=== PATIENT | male | born 1965 | race Caucasian/White ===

== ENCOUNTER 2016-11-18 05:17 | Inpatient (IN) | payer OTHER ==
[2016-11-17 11:19] VITALS: BMI 33.5
[~2016-11-18] VITALS: Ht 185.4 cm; Wt 121.2 kg
[2016-11-18] VITALS (16 sets, daily range): BP systolic 119–165; BP diastolic 71–102; PULSE 50–88; RESP 12–20; Ht 185.4 cm; Wt 121.2 kg
[2016-11-18] MEDS ORDERED: LACTATED RINGER'S 1L BAG IV* SCH (06:00)
[2016-11-18] MEDS ORDERED: CEFAZOLIN 2 GM/50 ML (PMX) 50 ML IVPB SCH (06:00)
[2016-11-18 06:04] LABS: INR 0.96; PROTIME 12.8 Sec (12.2-14.2)
[2016-11-18 06:06] LABS: PARTIAL THROMBOPLASTIN TIME 29.6 Sec (25.0-35.0)
[2016-11-18] MEDS ORDERED: SURGIFOAM POWDER 1 GM KIT ONE (06:47)
[2016-11-18] MEDS ORDERED: BUPIVACAINE 0.25%/EPI (SDV) 30 ML INJ ONE (06:48)
[2016-11-18] MEDS ORDERED: CEFAZOLIN 1 GM INJ ONE (06:48)
[2016-11-18] MEDS ORDERED: HEPARIN 1000 UNITS/ML 10 ML INJ ONE (06:48)
[2016-11-18] MEDS ORDERED: THROMBIN 5000 UNIT VIAL ONE (06:48)
[2016-11-18] MEDS ORDERED: PROPOFOL 100 ML ONE (07:00)
[2016-11-18] MEDS ORDERED: ROCURONIUM 50 MG INJ ONE (07:00)
[2016-11-18] MEDS ORDERED: LIDOCAINE 2% (SDV) 5 ML INJ ONE (07:01)
[2016-11-18] MEDS ORDERED: SUCCINYLCHOLINE CHLORIDE 100 MG/5 ML SYG IV ONE (07:01)
--- NOTE | 2016-11-18 07:02 | HPN ---
Date/Time of Note Date/Time of Note DATE: 11/18/16 TIME: 07:02 Interval H&P Admission Note Pt. seen H&P reviewed: No system changes IVELISSE OSPINA MD Nov 18, 2016 07:02
[2016-11-18] MEDS ORDERED: MIDAZOLAM 1 MG/ML 2 ML INJ ONE (07:14)
[2016-11-18] MEDS ORDERED: HYDROmorphONE 1 MG/ML SYG IV PRN (07:30)
[2016-11-18] MEDS ORDERED: NALOXONE (0.4 MG/ML) INJ IV PRN (07:30)
[2016-11-18] MEDS ORDERED: HYDROCODONE/APAP (10/325) TAB PO PRN (07:30)
[2016-11-18] MEDS ORDERED: ACETAMINOPHEN 325 MG TAB PO PRN (07:30)
[2016-11-18] MEDS ORDERED: ZOLPIDEM 5 MG TAB PO PRN (07:30)
[2016-11-18] MEDS ORDERED: EPHEDrine SULFATE 50 MG/5 ML SYG IV PRN (07:30)
[2016-11-18] MEDS ORDERED: ONDANSETRON 4 MG INJ IV PRN ×2 (07:30)
[2016-11-18] MEDS ORDERED: hydrALAzine 20 MG INJ IV PRN (07:30)
[2016-11-18] MEDS ORDERED: BISACODYL 10 MG SUPP PR PRN (07:30)
[2016-11-18] MEDS ORDERED: DIPHENHYDRAMINE 25 MG CAP PO PRN (07:30)
[2016-11-18] MEDS ORDERED: HYDROmorphONE (0.2 MG/ML) 10ML SYG IV PRN ×2 (07:30)
[2016-11-18] MEDS ORDERED: FENTAnyl 50 MCG/ML VIAL IV PRN ×2 (07:30)
[2016-11-18] MEDS ORDERED: MEPERIDINE 25 MG INJ IV PRN (07:30)
[2016-11-18] MEDS ORDERED: LABETALOL HCL 20MG INJ IV PRN (07:30)
[2016-11-18] MEDS ORDERED: AL HYDROX/MG HYDROX/SIMETH 30 ML CUP PO PRN (07:30)
[2016-11-18] MEDS ORDERED: DIPHENHYDRAMINE 50 MG INJ IV PRN (07:30)
[2016-11-18] MEDS ORDERED: HYDROmorphONE 2 MG/ML SYG ONE (08:15)
[2016-11-18] MEDS ORDERED: LABETALOL HCL 20MG INJ ONE (08:31)
[2016-11-18] MEDS: DOCUSATE SODIUM 100 MG CAP PO SCH ×2 (09:00→20:19)
[2016-11-18] MEDS ORDERED: GELATIN SIZE 100 SPONGE TOP ONE (09:15)
--- NOTE | 2016-11-18 10:22 | OPR ---
DATE OF OPERATION: PREOPERATIVE DIAGNOSES: 1. L5-S1 isthmic spondylolisthesis and stenosis. 2. Lumbar radiculopathy. POSTOPERATIVE DIAGNOSES: 1. L5-S1 isthmic spondylolisthesis and stenosis. 2. Lumbar radiculopathy. PROCEDURE PERFORMED: 1. Anterior lumbar interbody fusion at L5 to S1. 2. Placement of intervertebral biomechanical device with integral screws at L5 to S1. 3. Fibergraft allograft. 4. Use of C-arm fluoroscopy with interpretation without radiologist present. 5. Application of NuShield device. 6. Intraoperative neuromonitoring (1.5 hours). IMPLANTS: 1. Synthes Synfix Evolution large 13.5 mm height with 18-degree lordosis 40, mm width, 31 mm depth with 25 mm screws. 2. Fibergraft. PRIMARY SURGEON: Larry Mcnally MD COSURGEON: Wilmer Reed MD SECOND [place] STILL OPERATOR: Ileana Liu PA-C NEED FOR COSURGEON: A cosurgeon was required in order to perform vascular access. This is the standard of care. FINDINGS: Neuromonitoring at the start of the case revealed left L5, left S1 and right S1 amplitudes all down to 40%. At the end of the case, nerve signals returned to normal. The patient had an anterolisthesis with significant disk collapse. ESTIMATED BLOOD LOSS: Per Dr. Reed. SPECIMENS: L5 to S1 disk was sent to Pathology. COMPLICATIONS OF PROCEDURES: None. ANESTHESIOLOGIST: Dr. Monte. TYPE OF ANESTHESIA: General. INDICATIONS FOR PROCEDURE: This is a 50-year-old gentleman with isthmic spondylolisthesis, stenosis and radiculopathy, who had failed nonoperative measures. Preoperatively, we discussed the risks, benefits, and alternatives. He understood and wished to proceed. DESCRIPTION OF PROCEDURE IN DETAIL: The patient was identified in the preoperative holding area, given Ancef antibiotic, taken to the operating room, where he was successfully placed under general anesthesia by Dr. Monte. Neuromonitoring leads were placed, sequential compressive devices were applied. Rios catheter was introduced. Arterial line was placed. OG tube was placed. Neuromonitoring was utilized during the procedure for this stage for 1.5 hours to include SSEP, MEP, and EMG. This was performed by [employer] [facility]. Start time was 8:00 a.m., closure time was 9:30 a.m. The patient was placed on the operating table in supine position. All bony prominences were well padded. The abdomen was prepped and draped in usual sterile fashion. A left-sided anterior retroperitoneal approach was performed to the L5 to S1 level. This was performed by Dr. Reed and dictated separately. Once he had identified the L5 to S1 disk space, I placed a bent spinal needle into the disk space and took AP and lateral images to confirm the correct levels. Once this was confirmed, I performed a radical diskectomy at the L5 to S1 level using curettes, Kerrison punches and pituitary rongeurs. I gradually used distractors to open up the disk space and clean out the posterior annulus. I was ultimately able to reduce the spondylolisthesis nearly completely. Once this was done, I placed various trials and chose the appropriate graft height. I then took the PEEK cage, within which I placed allograft and I impacted the intervertebral biomechanical device into the L5 to S1 level to complete the anterior lumbar interbody fusion at this level. I then placed the integral 25 mm screws at L5 and S1. Once this was done, all nerve signals returned to normal. Dr. Reed then irrigated the wound, placed a NuShield device and closed the wound in layers. He will dictate the closure separately. Final AP and lateral images were obtained, and I was happy with placement of the hardware and alignment of the spine. The patient will be transitioned to the operating table in prone position for stage 2, which will be dictated separately. At the end of the case, abdominal films were obtained showing no foreign bodies remaining in the abdomen. There were no complications during the stage 1 procedure. Dictated By: LARRY JAIMES/KAMRON Conf#: [id number] DID#: [id number] MTDMervin
[2016-11-18] MEDS ORDERED: DEXAMETHASONE 4 MG/ML 1 ML INJ ONE (11:39)
[2016-11-18] MEDS ORDERED: ONDANSETRON 4 MG INJ ONE (11:40)
[2016-11-18] MEDS: HYDROmorphONE 0.2 MG/ML PCA IV SCH ×2 (12:03→16:24)
[2016-11-18] MEDS: FENTAnyl 50 MCG/ML VIAL IV PRN ×2 (12:04→12:27)
[2016-11-18] MEDS: HYDROmorphONE (0.2 MG/ML) 10ML SYG IV PRN ×5 (12:31→12:58)
--- NOTE | 2016-11-18 12:46 | OPR ---
DATE OF OPERATION: 11/18/2016 PREOPERATIVE DIAGNOSIS: Status post anterior lumbar interbody fusion L5 to S1 isthmic spondylolisth esis. POSTOPERATIVE DIAGNOSIS: Status post anterior lumbar interbody fusion L5 to S1 isthmic spondylolist hesis. PROCEDURE PERFORMED: 1. Pedicle screw placement bilaterally at L5 and S1. 2. Posterolateral fusion at L5 to S1. 3. Bone marrow aspiration from right L5 pedicle and vertebral body. 4. Use of C-arm fluoroscopy with interpretation without radiologist present. 5. Intraoperative neuromonitoring (1.5 hours). 6. Allograft. IMPLANTS: [place] Ole[place] pedicle screws 6.5 x 40 mm at L5 bilaterally and 7.5 x 40 mm at S1 bilater ally. PRIMARY SURGEON: Larry Mcnally MD WRECKING SUPERVISOR: MANUELITO Aguilar NEED FOR NEW ACCOUNTS BANKING REPRESENTATIVE: During this spinal surgical procedure, my public aid eligibility assistant was used to retrac t and protect the spinal nerves and dural sac. My public aid eligibility assistant also employed the suction catheters to evacuate blood from the surgical field to improve visualization of the neural structures. The woodrow tant was medically necessary to facilitate the completion of the surgery in a safe and expeditious michael. State of [place] regulations, as well as hospital bylaws, preclude the use of non-license d health care personnel, such as operating room technicians, to perform these functions. FINDINGS: Neuromonitoring at the beginning and at the end of this stage were normal. ESTIMATED BLOOD LOSS: Less than 30 mL. DRAINS: None. SPECIMENS: None. COMPLICATIONS OF PROCEDURES: None. ANESTHESIOLOGIST: Dr. Monte. TYPE OF ANESTHESIA: General. INDICATIONS FOR PROCEDURE: This is a 50-year-old gentleman who completed stage 1 anterior lumbar in terbody fusion for an L5 to S1 isthmic spondylolisthesis. He presents for second stage. DESCRIPTION OF PROCEDURE IN DETAIL: Stage 1 was completed to include anterior lumbar interbody fusi on. This portion is dictated separately. Upon completion, the patient was placed on the operating table in prone position over a Srinivasan frame. All bony prominences were well padded. The back was t hen prepped and draped in usual sterile fashion. Neuromonitoring was utilized during the procedure for stage 2 to include SSEP, MEP, and EMG. Start time was 10:15 a.m., closure time was 11:45 a.m. After the back was prepped, I injected the incision sites with Marcaine and epinephrine. I made parasagittal incisions at the L5 to S1 level. Incision was taken down to dorsal fascia. Thi s was incised. I next passed Jamshidi needles into the L5 and S1 pedicles bilaterally under biplana r C-arm fluoroscopy. Once the needles were in place, I performed a bone marrow aspiration of the r ight L5 pedicle and vertebral body. I then passed guidewires and removed the Jamshidi needles. I t hen placed the appropriate size pedicle screws bilaterally at L5 and S1. I stimulated the screws an d there was no evidence of cortical breach. Once this was done, I placed 50 mm rods with set screws with tightening per manufacture specifications. I then irrigated the wound. I then performed a po sterolateral fusion using the allograft sponges. I took final AP and lateral images and I was happy with placement of the hardware and alignment of the spine. The pediatric rn tabs were broken off and I closed the deep fascia with a #1 Vicryl stitch. I closed subcutaneous tissue with a 2-0 Vicryl sti tch. Dermabond was then applied. The patient was then awakened from anesthesia and taken to recove ry in stable condition. Lap, sponge and instrument counts were correct x2. There were no apparent complications during the procedure. The patient will be admitted to the orthopedic pena for routine postoperative care to include pain c ontrol, neurovascular checks, antibiotics, and physical therapy. Dictated By: LARRY JAIMES/KAMRON Conf#: [id number] DID#: [id number]
[2016-11-18] MEDS: CEFAZOLIN 1 GM/50 ML (PMX) 50 ML IVPB SCH ×2 (13:23→19:49)
[2016-11-18] MEDS: D5W-0.45 NACL + KCL 20 MEQ 1,000 ML IV SCH ×2 (13:23→23:36)
--- NOTE | 2016-11-18 13:50 | CONS ---
DATE OF ADMISSION: 11/18/2016 DATE OF CONSULTATION: 11/18/2016 The patient had surgery with Dr. Larry Mcnally on 11/18/2016. REASON FOR CONSULTATION: Consultation requested by Dr. Larry Mcnally for medical evaluation and f leolalowup of a 50-year-old gentleman who just underwent anterior, posterior lumbar spine fusion, parti cularly at L5-S1, for medical followup. HISTORY OF PRESENT ILLNESS: The patient seen in the recovery room postoperatively, is still quite g roggy. PAST MEDICAL HISTORY: History gleaned from the chart, basically shows a gentleman who has been rela tively healthy, has really not had any major issues other than his back and has had numerous evaluat ions and eventually noted to have significant lumbar spine issues and today had it corrected with Dr Kan Lara. ALLERGIES: BACTRIM OR SEPTRA. PHYSICAL EXAMINATION: VITAL SIGNS: Postoperatively, the patient is afebrile, blood pressure was 150/95, pulse 70 and regu lar, respirations 12 to 14, O2 saturation 97, O2 on nasal cannula. HEENT: Unremarkable. CHEST: Lungs are clear. HEART: Reveals a regular rhythm. ABDOMEN: The patient was postop with diminished bowel sounds. NEUROLOGIC: Grossly intact. DISCUSSION: In reviewing this patient's chart, he denies any chronic medications at this particula r point in time. His preoperative workup was unrevealing in terms of any laboratory abnormalities. He has no significant family history. He is really not, as mentioned, taking any medications at th is point in time and has no relevant other issue. IMPRESSION: 1. Status post lumbar spine fusion. 2. Hypertension. 3. Stable health. DISCUSSION: Plan is to follow patient with you. We will order some medications in terms of his blo od pressure management and will follow him along with you during his stay at [facility] a general medical standpoint. Thank you again, Dr. Mcnally, for allowing us to participate in care of this patient. Dictated By: DISHA HORTON/NTS Conf#: [id number] DID#: [id number]
--- NOTE | 2016-11-18 15:08 | RADRPT ---
PROCEDURE: XR Abdomen. CLINICAL INDICATION: S/P ANTERIOR LUMBAR FUSION/ R/O F.B INTRUMENT COUNT TECHNIQUE: AP abdomen x-ray. COMPARISON: None. FINDINGS: There is a nonobstructive bowel gas pattern. There are no abnormal calcifications overlying the urinary tracts. Spinal fusion hardware including a plate and screws are noted of the sacrum. A 1 mm punctate radiopa city is noted approximately 8 mm above the plate in the sacrum. No other radiopaque foreign bodies a re noted. IMPRESSION: Sacral spinal fusion hardware is noted. There is a 1 mm punctate radiopacity approximately 8 mm sup erior to the plate in the sacrum which may be artifactual. No other radio-opacities are noted. RPTAT: EE Physician Ace Date Time Electronically viewed and signed by Physician Ace on 11/18/2016 15:08 /
--- NOTE | 2016-11-18 15:25 | RADRPT ---
PROCEDURE: Fluoroscopic guidance with x-ray images during lumbar spine fusion at L5-S1. CLINICAL INDICATION: L5-S1 lumbar spine fusion. TECHNIQUE: Two x-ray images were obtained during lumbar spine L5-S1 fusion. COMPARISON: None available FINDINGS: 56.2 seconds of fluoroscopy time was utilized during pacemaker insertion. Two x-ray images were obt ained during the procedure in progress for guidance. Cumulative dose total is -0.00 mGy and 1.07 mGy m2. The tips to localizer centered S1 and S2 are at L5. There is a fusion plate with angled screws present on the AP images. Procedure was performed by Dr. Lara. IMPRESSION: 1. Fluoroscopic guidance with x-ray images obtained for L5-S1 lumbar spine fusion. RPTAT: XX .Jamie Krause MD, Date Time Electronically viewed and signed by .Jamie Krause MD, MD on 11/18/2016 15:25 .T/
--- NOTE | 2016-11-18 15:27 | RADRPT ---
PROCEDURE: Fluoroscopic guidance with x-ray images during L5-S1 lumbar spine fusion. CLINICAL INDICATION: L5-S1 lumbar spine fusion. TECHNIQUE: 8 x-ray images were obtained during L5-S1 lumbar spine fusion. COMPARISON: None available FINDINGS: 159.1 seconds of fluoroscopy time was utilized during pacemaker insertion. 8 x-ray images were obta ined during the procedure in progress for guidance. Cumulative dose total is 130.83 mGy and to pedic le screws with connecting hardware and anterior fusion plate with angled screws were placed at the L 5-S1 level. There is anterolisthesis of L5-S1. No evidence for hardware fracture. Procedure was pe rformed by Dr. Mcnally. IMPRESSION: 1. Fluoroscopic guidance with x-ray images obtained for L5-S1 fusion. RPTAT: XX .Jamie Krause MD, Date Time Electronically viewed and signed by .Jamie Krause MD, on 11/18/2016 15:27 .T/
--- NOTE | 2016-11-18 22:16 | OPR ---
DATE OF OPERATION: PREOPERATIVE DIAGNOSIS: Degenerative disk disease, lumbosacral spine. POSTOPERATIVE DIAGNOSIS: Degenerative disk disease, lumbosacral spine. PROCEDURE: Anterior retroperitoneal exposure and interbody fusion at L5-S1. SURGEON: Reny Reed MD ANESTHESIA: General. CO-SURGEON: Larry Mcnally MD ESTIMATED BLOOD LOSS: 100 mL. INFORMED CONSENT: Risks, benefits, complications, alternative therapies, high-risk nature of the op eration were fully explained to the patient, consent obtained. Risks and benefits that were explain ed to the patient included but not limited to bleeding, infection, damage to bowel, damage to ureter , sexual dysfunction, retrograde ejaculation, neurological deficits, need for further surgeries, DVT , PE, and others. All questions answered. OPERATIVE TECHNIQUE: The patient was placed in supine position, prepped and draped in usual sterile fashion. I made a 6 cm incision in left lower quadrant above the symphysis pubis in horizontal fas hion. Incision was taken down to the subcutaneous tissue, which was then opened using electrocauter y. Left anterior rectus sheath was opened. Retroperitoneal space was entered. Bookwalter retracto r was placed and the bowel contents were retracted to right. Left rectus muscle was retracted to th e left. The left common iliac artery and vein and external iliac artery and vein were dissected usi ng a peanut dissector. The middle sacral vessels were ligated using titanium clips. Exposure for L 5-S1 disk space was obtained between the right and left common iliac artery and vein. We proceeded with the diskectomy and placement of the new disk fusion device. Please refer to Dr. Mcnally for dictation for the details of that operation. After all the x-rays were satisfactory, read by Dr. Cachorro dubose, needle counts and sponge counts were correct. No evidence of any bleeding was noted. The wound was irrigated using antibiotic solution. The anterior rectus sheath was closed using #1 Vicry l suture in running fashion. The wound was irrigated again and closed in 2 layers of 2-0 Vicryl sut ure for subcutaneous, and Steri-Strips for the skin. The patient tolerated procedure well. Dictated By: RENY REED MD FM/NTS Conf#: [id number] DID#: [id number] CC: LARRY MCNALLY MD;*EndCC*
--- NOTE | 2016-11-18 22:28 | CONS ---
DATE OF ADMISSION: 11/18/2016 DATE OF CONSULTATION: REASON FOR CONSULTATION: Evaluation for anterior retroperitoneal exposure of the lumbosacral spine. Thank you, Dr. Holman, for asking me to see this patient. HISTORY OF PRESENT ILLNESS: This is a 50-year-old male with a history of degenerative disk disease, lumbosacral spine who is undergoing an anterior retroperitoneal exposure, interbody fusion at the l evel of L5-S1. PAST MEDICAL HISTORY: Hypertension, hyperlipidemia. PAST SURGICAL HISTORY: None. ALLERGIES: NONE. SOCIAL HISTORY: No smoking, drinking or drug use. MEDICATIONS: List reviewed. PHYSICAL EXAMINATION: VITAL SIGNS: Blood pressure is 110/60, pulse is 80, respirations 18. CARDIOVASCULAR: Regular rate and rhythm. Normal S1, S2. No murmurs, gallops or rubs. LUNGS: Clear. ABDOMEN: Soft. EXTREMITIES: Warm. IMPRESSION: Degenerative disk disease, lumbosacral spine. RECOMMENDATIONS: Will proceed with anterior retroperitoneal exposure, interbody fusion at the level of L5-S1. Risks, benefits, complications, alternative therapies, high-risk nature of the operation fully explained to the patient, consent obtained. Risks and benefits that were explained to the pa tient included but not limited to bleeding, infection, damage to bowel, damage to ureter, wound infe ction, wound dehiscence, need for further surgery, retrograde ejaculation, sexual dysfunction and ot hers. All questions answered. Dictated By: RENY INMAN/NTS Conf#: [id number] DID#: [id number]
[2016-11-18] MEDS: CEPASTAT LOZENGE MT PRN (23:39)
[2016-11-19 00:25] VITALS: BP 109/66; PULSE 93
[2016-11-19] MEDS: CYCLOBENZAPRINE 10 MG TAB PO PRN ×4 (01:19→23:21)
[2016-11-19] MEDS: HYDROmorphONE 0.2 MG/ML PCA IV SCH ×3 (01:40→16:00)
[2016-11-19] MEDS: CEFAZOLIN 1 GM/50 ML (PMX) 50 ML IVPB SCH (03:18)
[2016-11-19 04:52] LABS: ADD SCAN DIFF NO
[2016-11-19 05:16] LABS: BASOPHILS % 0.1 % (0.0-2.0); HEMATOCRIT 42.5 % (42.0-52.0); HEMOGLOBIN 14.7 g/dl (14.0-18.0); MEAN CORPUSCULAR HEMOGLOBIN 30.3 pg (29.0-33.0); MEAN CORPUSCULAR HGB CONC 34.6 g/dl (32.0-37.0); MEAN CORPUSCULAR VOLUME 87.6 fl (82.0-101.0); MEAN PLATELET VOLUME 9.6 fl (7.4-10.4); MONOCYTE # 1.5 10^3/ul (0.3-0.9); MONOCYTES % 9.6 % (0.0-11.0); NEUTROPHIL # 11.7 10^3/ul (1.6-7.5); NEUTROPHILS % 76.9 % (39.0-77.0); PLATELET COUNT 223 10^3/UL (140-415); RED BLOOD COUNT 4.85 10^6/ul (4.70-6.10); RED CELL DISTRIBUTION WIDTH 13.3 % (11.5-14.5); WHITE BLOOD COUNT 15.2 10^3/ul (4.8-10.8)
[2016-11-19 05:23] LABS: POTASSIUM 4.2 mmol/L (3.5-5.1)
[2016-11-19 05:26] LABS: CALCIUM 8.7 mg/dl (8.4-10.2); CREATININE 0.9 mg/dl (0.61-1.24)
[2016-11-19 05:27] LABS: MAGNESIUM 1.7 mg/dl (1.7-2.5)
[2016-11-19] MEDS: CEPASTAT LOZENGE MT PRN (05:39)
[2016-11-19 05:53] VITALS: BP 128/79; PULSE 84
[2016-11-19] MEDS ORDERED: PANTOPRAZOLE 40 MG INJ IV SCH (06:00)
[2016-11-19 07:00] VITALS: BP 128/81; RESP 18
[2016-11-19] MEDS: D5W-0.45 NACL + KCL 20 MEQ 1,000 ML IV SCH ×2 (07:38→18:10)
--- NOTE | 2016-11-19 08:17 | PN ---
Date/Time of Note Date/Time of Note DATE: 11/19/16 TIME: 08:16 Assessment/Plan Lines/Catheters IV Catheter Type (from Nrsg): Peripheral IV Rios in Place (from Nrsg): Yes Assessment/Plan Assessment/Plan s/p fusion doing well routine post op Subjective 24 Hr Interval Summary c/o pain Exam/Review of Systems Vital Signs Vitals Vital Signs Date Time Temp Pulse Resp B/P Pulse Ox O2 Delivery O2 Flow Rate FiO2 11/19/16 07:00 98.7 80 18 128/81 97 11/19/16 05:53 Nasal Cannula 11/18/16 20:20 2.0 Intake and Output 11/18/16 11/18/16 11/19/16 15:00 23:00 07:00 Intake Total 2000 ml 2200 ml 1500 ml Output Total 700 ml 1150 ml 3300 ml Balance 1300 ml 1050 ml -1800 ml Exam Free Text/Dictation nvi calf soft Results Result Diagram: 11/19/16 0430 11/19/16 0430 IVELISSE OSPINA MD Nov 19, 2016 08:17
[2016-11-19] MEDS: DOCUSATE SODIUM 100 MG CAP PO SCH ×2 (08:25→20:38)
--- NOTE | 2016-11-19 09:23 | CONS ---
DATE OF ADMISSION: 11/18/2016 DATE OF CONSULTATION: 11/19/2016 POSTOPERATIVE CONSULTATION FOLLOWUP TIME SEEN: Approximately 7:50 a.m. SUBJECTIVE: The patient is alert this morning, on the phone, complaining of pain at the surgical si te, but otherwise no specific complaints and seems to be doing relatively well. OBJECTIVE: VITAL SIGNS: The patient's vital signs reveal the following: Blood pressure 128/81, pulse 80 and r egular, respirations 18, temperature 98.7, O2 saturation 97% on room air. HEENT: Unremarkable. LUNGS: Clear. HEART: Reveals a regular rhythm. IMPRESSION: 1. Status post anterior/posterior fusion. 2. Lumbar disk disease. 3. Hypertension. LABORATORY: Laboratory and other data reveal the following: The patient's CBC reveals an elevated white count of 15.2, probably secondary to steroid use. Chemistry panel is normal. Coag studies fr om yesterday are normal, no abnormalities being noted. DISCUSSION: The patient hopefully will be getting fed and beginning with his therapy. From a medic al standpoint, he seems stable at this particular point in time. Thank you again, Dr. Mcnally, for allowing us to participate in the care of this patient. Dictated By: DISHA HORTON/KAMRON Conf#: [id number] DID#: [id number]
[2016-11-19] MEDS ORDERED: KETOROLAC 30 MG INJ IV STA (16:50)
[2016-11-19 20:01] VITALS: BP 148/94; RESP 18
[2016-11-20] VITALS (18 sets, daily range): BP systolic 102–134; BP diastolic 59–96; PULSE 78–187; RESP 18–21
[2016-11-20] MEDS: HYDROmorphONE 0.2 MG/ML PCA IV SCH (02:19)
[2016-11-20] MEDS ORDERED: DILTIAZEM 25 MG INJ IV ONE ×2 (03:16→07:00)
[2016-11-20 03:29] LABS: ADD SCAN DIFF NO
[2016-11-20 03:45] LABS: POTASSIUM 3.8 mmol/L (3.5-5.1)
[2016-11-20 03:47] LABS: CREATININE 1.02 mg/dl (0.61-1.24)
[2016-11-20 03:48] LABS: ABNORMAL IP MESSAGE 1; BASOPHILS % 0.2 % (0.0-2.0); CALCIUM 8.4 mg/dl (8.4-10.2); EOSINOPHILS # 0.1 10^3/ul (0.0-0.5); EOSINOPHILS % 0.7 % (0.0-7.0); HEMATOCRIT 43.1 % (42.0-52.0); LYMPHOCYTES # 3.1 10^3/ul (0.8-2.9); LYMPHOCYTES % 23.3 % (15.0-51.0); MAGNESIUM 1.8 mg/dl (1.7-2.5); MEAN CORPUSCULAR HGB CONC 34.8 g/dl (32.0-37.0); MEAN PLATELET VOLUME 9.5 fl (7.4-10.4); MONOCYTE # 1.8 10^3/ul (0.3-0.9); MONOCYTES % 13.1 % (0.0-11.0); NEUTROPHIL # 8.4 10^3/ul (1.6-7.5); NEUTROPHILS % 62.3 % (39.0-77.0); PLATELET COUNT 202 10^3/UL (140-415); RED BLOOD COUNT 4.84 10^6/ul (4.70-6.10); RED CELL DISTRIBUTION WIDTH 13.7 % (11.5-14.5); WHITE BLOOD COUNT 13.4 10^3/ul (4.8-10.8)
[2016-11-20] MEDS: D5W-0.45 NACL + KCL 20 MEQ 1,000 ML IV SCH ×3 (04:00→20:23)
[2016-11-20] MEDS: CEPASTAT LOZENGE MT PRN ×2 (04:31→09:07)
[2016-11-20] MEDS: PANTOPRAZOLE (EC) 40 MG TAB PO SCH (05:37)
[2016-11-20] MEDS ORDERED: DILTIAZEM-D5W 125MG/125ML DRIP 125 ML IV SCH ×2 (07:00→13:00)
[2016-11-20] MEDS ORDERED: MAGNESIUM SULFATE 2 GM/50 ML 50 ML IVPB ONE (08:00)
--- NOTE | 2016-11-20 08:01 | PN ---
Date/Time of Note Date/Time of Note DATE: 11/20/16 TIME: 07:59 Assessment/Plan Lines/Catheters IV Catheter Type (from Nrsg): Peripheral IV Rios in Place (from Nrsg): Yes Assessment/Plan Assessment/Plan s/p lumbar fusion afib overnight cardiac enzumes pending on dilt no calf pain replete mag ekg pending possible echo Subjective 24 Hr Interval Summary denies CP or calf pain Exam/Review of Systems Vital Signs Vitals Vital Signs Date Time Temp Pulse Resp B/P Pulse Ox O2 Delivery O2 Flow Rate FiO2 11/20/16 07:11 150 134/65 11/20/16 04:22 97.6 18 97 11/20/16 04:00 Nasal Cannula 11/19/16 20:20 2.0 Intake and Output 11/19/16 11/19/16 11/20/16 15:00 23:00 07:00 Intake Total 2660 ml 1170 ml Output Total 4100 ml 1700 ml Balance -1440 ml -530 ml Exam Free Text/Dictation NVI calf soft irreg HR Results Result Diagram: 11/20/16 0320 11/20/16 0320 IVELISSE OSPINA MD Nov 20, 2016 08:01
[2016-11-20] MEDS: DOCUSATE SODIUM 100 MG CAP PO SCH ×2 (09:07→20:22)
[2016-11-20] MEDS ORDERED: HYDROCODONE/APAP (10/325) TAB PO SCH (09:30)
--- NOTE | 2016-11-20 10:19 | CONS ---
DATE OF ADMISSION: 11/18/2016 DATE OF CONSULTATION: 11/20/2016 The patient seen at approximately 7:45 a.m. HISTORY OF PRESENT ILLNESS: The patient relatively comfortable; however, is( new onset) in atrial fibrillation. According to patient has never had any episodes of atrial fibrillation in the past. PHYSICAL EXAMINATION: VITAL SIGNS: Revealed the following: Pulse rate currently is 133 on a diltiazem drip. Blood pressure is 134/65, respirations 18, O2 saturation 97% on O2. GENERAL: The patient is afebrile. HEENT: Unremarkable other than nasal cannula of O2. LUNGS: Relatively clear. HEART: Reveals an irregularly irregular rhythm. ABDOMEN: Distention with diminished breath sounds. IMPRESSION: 1. New onset atrial fibrillation in postoperative patient without known cardiac disease, rule out pulmonary emboli. 2. Status post anterior, posterior lumbar spine fusion. 3. Hypertension. 4. Stable health. DISCUSSION: Laboratory data done this morning reveals normal electrolytes, BUN , creatinine, normal troponin. His TSH and free T4 are normal as well. EKG is pending. The patient has been started on therapy with some slowing of the pulse rate. Cardiology consultation will be obtained with Dr. Troy's group. In terms of controlling his atrial fibrillation, other appropriate studies have been ordered. CONDITION: Stable. PROGNOSIS: Obviously dependent on the etiology and ultimate ease of control of his atrial fibrillation. Dictated By: DISHA HORTON/KAMRON Conf#: [id number] DID#: [id number] MTDD
[2016-11-20] MEDS ORDERED: POTASSIUM CHLORIDE (SR) 20 MEQ TAB PO STA (12:50)
--- NOTE | 2016-11-20 12:58 | CONS ---
Date/Time of Note Date/Time of Note DATE: 11/20/16 TIME: 12:52 Assessment/Plan Assessment/Plan Additional Assessment/Plan Atrial fibrillation with rapid ventricular rates Recent spinal surgery Hypertension -Patient with newly diagnosed atrial fibrillation with rapid ventricular rates. Patient was on MedSurg floor and transferred to telemetry last night. He is currently asymptomatic but heart rates are still elevated. Would start Cardizem drip and p.o. Cardizem as well. Maintain potassium above 4.0 and magnesium above 2.0. Check echocardiogram. Adequate pain control Consultation Date/Type/Reason Admit Date/Time Nov 18, 2016 at 05:17 Type of Consultation: cv Reason for Consultation Atrial fibrillation Hx of Present Illness This is a 50-year-old male with history of hypertension status post spinal surgery who developed palpitations yesterday. Patient was found to be new onset atrial fibrillation. Patient with symptoms of palpitations but denied chest pain, shortness of breath. He was treated with IV Cardizem pushes and currently is asymptomatic. No known history of atrial fibrillation in the past. Otherwise he is an active person, up and walking with no symptoms in the past of palpitations. He denies exertional chest pain or shortness of breath. His activity has currently been limited secondary to his recent surgery. 12 point review of systems was performed with all pertinent positives and negatives mentioned above and all else is negative Past Medical History Spine pathology Medical History: hypertension Past Surgical History Recent spine surgery Social History Alcohol Use: occasionally Smoking Status: Never smoker Exam/Review of Systems Vital Signs Vitals Vital Signs Date Time Temp Pulse Resp B/P Pulse Ox O2 Delivery O2 Flow Rate FiO2 11/20/16 12:16 153 11/20/16 11:03 98.4 18 117/65 95 11/20/16 04:00 Nasal Cannula 11/19/16 20:20 2.0 Intake and Output 11/19/16 11/19/16 11/20/16 15:00 23:00 07:00 Intake Total 2660 ml 1170 ml Output Total 4100 ml 1700 ml Balance -1440 ml -530 ml Exam No apparent distress Constitutional: alert, oriented, well developed Head: normocephalic Neck: supple Respiratory: clear to auscultation, normal air movement Cardiovascular: irregular rhythm (Tachycardic), other (S1-S2 heard) Gastrointestinal: bowel sounds, non-tender, other (No guarding), soft Extremities: edema (Trace), other (No cyanosis) Results Result Diagram: 11/20/16 0320 11/20/16 0320 Results 24 hrs Laboratory Tests Test 11/20/16 03:20 Anion Gap 14 Basophils # 0.0 Basophils % 0.2 Blood Urea Nitrogen 14 Calcium Level 8.4 Carbon Dioxide Level 28 Chloride Level 103 Creatinine 1.02 Eosinophils # 0.1 Eosinophils % 0.7 Free Thyroxine 0.97 Glucose Level 121 Hematocrit 43.1 Hemoglobin 15.0 Lymphocytes # 3.1 H Lymphocytes % 23.3 Magnesium Level 1.8 Mean Corpuscular Hemoglobin 31.0 Mean Corpuscular Hemoglobin Concent 34.8 Mean Corpuscular Volume 89.0 Mean Platelet Volume 9.5 Monocytes # 1.8 H Monocytes % 13.1 H Neutrophils # 8.4 H Neutrophils % 62.3 Nucleated Red Blood Cells # 0.0 Nucleated Red Blood Cells % 0.0 Platelet Count 202 Potassium Level 3.8 Red Blood Count 4.84 Red Cell Distribution Width 13.7 Sodium Level 141 Thyroid Stimulating Hormone (TSH) 2.070 Troponin I 0.018 White Blood Count 13.4 H Medications Medications Current Medications Potassium Chloride/Dextrose/ Sod Cl (D5-1/2ns + KCl 20 Meq) 1,000 ml @ 100 mls/ hr Q10H IV Last administered on 11/19/16 18:10; Admin Dose 100 MLS/HR; Start at 12:00 Acetaminophen/ Hydrocodone Bitart ([place] (10/325)) 1 tab Q4H PRN PO PAIN LEVEL 1-5; Start 11/18/16 at 07:30 Acetaminophen/ Hydrocodone Bitart ([place] (10/325)) 2 tab Q4H PRN PO PAIN LEVEL 6-10; Start 11/18/16 at 07:30 Hydromorphone HCl (Dilaudid) 0.2 mg Q1H PRN IV BREAKTHROUGH PAIN Last administered on 11/19/16 16:46; Admin Dose 0.2 MG; Start 11/18/16 at 07:30 Zolpidem Tartrate (Ambien) 5 mg HS PRN PO INSOMNIA; Start 11/18/16 at 07:30 Ondansetron HCl (Zofran Inj) 4 mg Q6H PRN IV NAUSEA AND/OR VOMITING; Start 11/18 at 07:30 Bisacodyl (Dulcolax Supp) 10 mg DAILY PRN [place] CONSTIPATION; Start 11/18/16 at 07: 30 Docusate Sodium (Colace) 100 mg BID PO Last administered on 11/20/16 09:07; Admin Dose 100 MG; Start 11/18/16 at 09:00 Al Hydrox/Mg Hydrox/Simethicone (Mag-Al Plus) 15 ml Q6H PRN PO CONSTIPATION/ DYSPEPSIA; Start 11/18/16 at 07:30 Acetaminophen (Tylenol Tab) 650 mg Q4H PRN PO BRITT OR TEMP GREATER THAN 101.3F; Start 11/18/16 at 07:30 Cyclobenzaprine HCl (Flexeril) 10 mg TID PRN PO MUSCLE SPASMS Last administered on 11/19/16 23:21; Admin Dose 10 MG; Start 11/18/16 at 07:30 Phenol (Cepastat Lozenge) 1 lozenge PRN PRN MT SORE THROAT Last administered on 11/20/16 09:07; Admin Dose 1 LOZENGE; Start 11/18/16 at 07:30 Diphenhydramine HCl (Benadryl) 25 mg Q6H PRN PO ITCHING; Start 11/18/16 at 07:30 Diphenhydramine HCl (Benadryl) 25 mg Q6H PRN IV ITCHING; Start 11/18/16 at 07:30 Naloxone HCl (Narcan) 0.2 mg Q2M PRN IV RR 8 BREATHS/MIN OR LESS; Start at 07:30 Clonidine (Catapres) 0.1 mg Q8H PRN PO ELEVATED BLOOD PRESSURE Last administered on 11/18/16 16:08; Admin Dose 0.1 MG; Start 11/18/16 at 13:30 Pantoprazole 40 mg 40 mg DAILY@06 PO Last administered on 11/20/16 05:37; Admin Dose 40 MG; Start 11/20/16 at 06:00 Diltiazem HCl (Cardizem-D5W 125 Mg/125 ml Drip) 125 ml @ 5 mls/hr TITRATE IV Last administered on 11/20/16 11:17; Admin Dose 5 MLS/HR; Start 11/20/16 at 07:00 Procedures Procedures ECG done earlier this morning with atrial fibrillation at 154 bpm, QRS 90 ms, nonspecific STT wave abnormalities Ankit Morales DO Nov 20, 2016 12:58
[2016-11-20] MEDS: DILTIAZEM 60 MG TAB PO SCH ×2 (14:08→20:23)
[2016-11-20] MEDS: HYDROCODONE/APAP (10/325) TAB PO PRN (18:33)
--- NOTE | 2016-11-20 20:32 | RADRPT ---
Vent Rate: 154 bpm RR Interval: 0 msec [place] Interval: 0 msec QRS Duration: 92 msec QT Interval: 300 msec QTC Interval: 480 msec P-R-T [place]: 0 - -16 - 20 degrees Atrial fibrillation with rapid ventricular response Possible Anterior infarct , age undetermined Abnormal ECG Electronically Signed By: Andrea Armando [id number]
--- NOTE | 2016-11-20 21:41 | RADRPT ---
Echocardiogram Report Patient Name: DANN DAVIS Gender: Male Date: 1965 Study Date: 20-Nov-2016 Ssrs Developer: Eleni Sosa [facility] Location: [facility] [place] Ref. Physician: ANKIT MORALES Quality: Good Procedures: Transthoracic echocardiogram with complete 2D, M-Mode, and doppler examination. Indications: Atrial Fibrillation. 2D/M Mode Doppler Measurement Value Normal Ranges Measurement Value Normal Ranges LVIDd 2D 3.5 3.5 - 5.6 cm AV Peak Ronald 1.9 m/sec LVIDs 2D 2.3 2.1 - 4.1 cm AV Peak PG 14.0 mmHg FS 2D 34.7 % LVOT Peak Ronald 1.2 m/sec LVPWd 2D 1.6 0.6 - 1.1 cm LVOT Peak PG 6.0 mmHg IVSd 2D 1.5 0.6 - 1.1 cm MV E Peak Ronald 1.0 m/sec IVS/LVPW 2D 0.9 MV Decel Time 120 msec AoR Diam 2D 3.5 2.0 - 3.7 cm LA/Ao 2D 1 0 - 1 EDV 2D 44.4 cm3 ESV 2D 12.3 cm3 LA Dimen 2D 4.0 2.3 - 4.0 cm Findings Left Ventricle: Normal left ventricular systolic function. Normal left ventricular cavity size. Moderate concentric left ventricular hypertrophy. Ejection fraction is visually estimated at 60 %. Right Ventricle: Normal right ventricular size. Normal right ventricular systolic function. Left Atrium: Upper limit of normal left atrial size. Right Atrium: The right atrium is normal in size. Mitral Valve: Mitral valve leaflets appear mildly thickened. Trace mitral regurgitation. Aortic Valve: Normal appearance of the aortic valve. No significant aortic stenosis or insufficiency. Tricuspid Valve: Normal appearance and function of the tricuspid valve with trace physiologic regurgitation. Pulmonic Valve: Normal pulmonic valve appearance. Pericardium: Normal pericardium with no significant pericardial effusion. Aorta: Sinus of valsalva is dilated. Sinus of valsalva4.3 cm. Sinotubular junction is dilated. Sinotubular junction: 4.0 cm. There is aortic root dilation. IVC: The IVC is not well visualized. Conclusions Normal left ventricular systolic function. Normal left ventricular cavity size. Moderate concentric left ventricular hypertrophy. Ejection fraction is visually estimated at 60 %. Normal right ventricular size. Normal right ventricular systolic function. Upper limit of normal left atrial size. The right atrium is normal in size. No significant valvular stenosis or regurgitation seen. There is aortic root dilation. Normal pericardium with no significant pericardial effusion. Electronically Signed By: Ankit Morales 20-Nov-2016 21:40:53 -0800 Patient Name: DANN DAVIS Study Date: 20-Nov-2016 [id number]
[2016-11-21] VITALS (9 sets, daily range): BP systolic 119–145; BP diastolic 72–99; PULSE 72–84; RESP 17–21
[2016-11-21] MEDS: HYDROCODONE/APAP (10/325) TAB PO PRN ×2 (02:00→08:04)
[2016-11-21 06:15] LABS: ADD SCAN DIFF NO
[2016-11-21 06:22] LABS: BASOPHILS % 0.3 % (0.0-2.0); EOSINOPHILS # 0.2 10^3/ul (0.0-0.5); EOSINOPHILS % 1.6 % (0.0-7.0); HEMOGLOBIN 13.1 g/dl (14.0-18.0); LYMPHOCYTES # 2.3 10^3/ul (0.8-2.9); LYMPHOCYTES % 23.8 % (15.0-51.0); MEAN CORPUSCULAR HGB CONC 33.6 g/dl (32.0-37.0); MEAN CORPUSCULAR VOLUME 89.4 fl (82.0-101.0); MEAN PLATELET VOLUME 9.7 fl (7.4-10.4); MONOCYTE # 1.4 10^3/ul (0.3-0.9); MONOCYTES % 14.1 % (0.0-11.0); NEUTROPHIL # 5.9 10^3/ul (1.6-7.5); NEUTROPHILS % 59.8 % (39.0-77.0); PLATELET COUNT 178 10^3/UL (140-415); RED BLOOD COUNT 4.36 10^6/ul (4.70-6.10); RED CELL DISTRIBUTION WIDTH 13.7 % (11.5-14.5); WHITE BLOOD COUNT 9.8 10^3/ul (4.8-10.8)
[2016-11-21 06:34] LABS: POTASSIUM 3.5 mmol/L (3.5-5.1)
[2016-11-21 06:36] LABS: CREATININE 0.88 mg/dl (0.61-1.24)
[2016-11-21 06:37] LABS: CALCIUM 8.1 mg/dl (8.4-10.2)
[2016-11-21] MEDS: PANTOPRAZOLE (EC) 40 MG TAB PO SCH (06:40)
[2016-11-21] MEDS: DILTIAZEM 60 MG TAB PO SCH ×2 (06:40→13:44)
[2016-11-21] MEDS: DOCUSATE SODIUM 100 MG CAP PO SCH (08:04)
--- NOTE | 2016-11-21 08:33 | PN ---
Date/Time of Note Date/Time of Note DATE: 11/21/16 TIME: 08:30 Assessment/Plan Lines/Catheters IV Catheter Type (from Nrsg): Peripheral IV Rios in Place (from Nrsg): Yes Assessment/Plan Assessment/Plan s/p ALIF L5-S1 - stable for discharge from orthopedic perspective may shower starting today with assistance - do not soak or scrub incision site do not need to dress incisions abdominal distension - ambulate, laxative as ordered PRN echo, ekg completed 11/20 afib - per cardiology and Dr. Lacy Subjective 24 Hr Interval Summary patient's back pain feels improved, legs improving denies calf pain, CP, SOB c/o abdominal discomfort, bloating is passing gas Exam/Review of Systems Vital Signs Vitals Vital Signs Date Time Temp Pulse Resp B/P Pulse Ox O2 Delivery O2 Flow Rate FiO2 11/21/16 08:07 72 11/21/16 07:31 98.1 17 140/85 92 11/20/16 20:00 Nasal Cannula 2.0 Intake and Output 11/20/16 11/20/16 11/21/16 15:00 23:00 07:00 Intake Total 720 ml 600 ml Output Total 1200 ml 1300 ml Balance -480 ml -700 ml Exam Free Text/Dictation abdominal incision removed incisions c/d/i abdomen - soft, distended NVID no calf TTP/cording/edema Results Result Diagram: 11/21/16 0555 11/21/16 0505 DEBRA MONGE PA-C Nov 21, 2016 08:33
--- NOTE | 2016-11-21 08:40 | CONS ---
DATE OF ADMISSION: 11/18/2016 DATE OF CONSULTATION: 11/21/2016 CONSULTATION FOLLOWUP The patient was seen approximately 7:40 a.m. HISTORY OF PRESENT ILLNESS: The patient converted sometime yesterday, feeling well, no particular c omplaints. OBJECTIVE VITAL SIGNS: Blood pressure 140/85, pulse 80 and regular, respirations 17, temperature 98.1, O2 sat uration 92% on room air. HEENT: Unremarkable. LUNGS: Clear. HEART: Reveals a regular rhythm. There rest of the exam is unremarkable. IMPRESSION: 1. Status post anterior, posterior lumbar spine fusion. 2. Paroxysmal atrial fibrillation, new onset, currently in sinus rhythm. 3. Hypertension. 4. Stable health. DISCUSSION: Review of laboratory and other data reveals the following: The patient's white count i s normal now as is his hemoglobin and hematocrit. His chemistries revealed normal electrolytes, BUN , creatinine. His thyroid function tests, as mentioned before, were unremarkable and his troponin w as negative. Plan per Dr. Mcnally. From my standpoint, he is stable enough to go home; however, a quality assurance qa lab technician must clear him for going home and probably will have him on outpatient medications to prevent recurrence. Thank you again, Dr. Mcnally, for allowing us to participate in the care of this patient. Dictated By: DISHA HORTON/KAMRON Conf#: [id number] DID#: [id number]
[2016-11-21] MEDS: D5W-0.45 NACL + KCL 20 MEQ 1,000 ML IV SCH (10:00)
--- NOTE | 2016-11-21 13:37 | CONS ---
Date/Time of Note Date/Time of Note DATE: 11/21/16 TIME: 13:32 Assessment/Plan Assessment/Plan Additional Assessment/Plan Atrial fibrillation with rapid ventricular rates, currently sinus Recent spinal surgery Left ventricular hypertrophy Aortic root dilatation Hypertension -Patient converted to sinus rhythm with Cardizem drip. Would start Cardizem 120 mg CD daily. Extensive discussion had with the patient regarding option of aspirin versus anticoagulation. Patient with chads2 score of 1. Given recent spinal surgery, and paroxysmal atrial fibrillation and currently remains in sinus, agree with aspirin at the current time. Patient also with aortic root dilatation seen on echocardiogram. This was discussed with the patient in detail including review of echocardiogram report. Recommendations made for outpatient CT scan for proper aortic root measurements. DC planning Consultation Date/Type/Reason Admit Date/Time Nov 18, 2016 at 05:17 Initial Consult Date Type of Consultation: cv 24 HR Interval Summary Free Text/Dictation Patient converted to sinus rhythm. Denies chest pain, palpitations or dizziness. Exam/Review of Systems Vital Signs Vitals Vital Signs Date Time Temp Pulse Resp B/P Pulse Ox O2 Delivery O2 Flow Rate FiO2 11/21/16 12:24 78 11/21/16 11:16 97.6 18 130/85 91 11/21/16 08:00 Nasal Cannula 2.0 Intake and Output 11/20/16 11/20/16 11/21/16 15:00 23:00 07:00 Intake Total 720 ml 600 ml Output Total 1200 ml 1300 ml Balance -480 ml -700 ml Exam No apparent distress Constitutional: alert, oriented, well developed Head: normocephalic Neck: supple Cardiovascular: other (S1-S2), regular rate and rhythm Gastrointestinal: bowel sounds, non-tender, other (No guarding), soft Extremities: other (No edema or cyanosis) Results Result Diagram: 11/21/16 0555 11/21/16 0505 Results 24 hrs Laboratory Tests Test 11/21/16 05:05 11/21/16 05:55 Anion Gap 14 Blood Urea Nitrogen 12 Calcium Level 8.1 L Carbon Dioxide Level 28 Chloride Level 104 Creatinine 0.88 Glucose Level 110 Magnesium Level 2.0 Potassium Level 3.5 Sodium Level 142 Basophils # 0.0 Basophils % 0.3 Eosinophils # 0.2 Eosinophils % 1.6 Hematocrit 39.0 L Hemoglobin 13.1 L Lymphocytes # 2.3 Lymphocytes % 23.8 Mean Corpuscular Hemoglobin 30.0 Mean Corpuscular Hemoglobin Concent 33.6 Mean Corpuscular Volume 89.4 Mean Platelet Volume 9.7 Monocytes # 1.4 H Monocytes % 14.1 H Neutrophils # 5.9 Neutrophils % 59.8 Nucleated Red Blood Cells # 0.0 Nucleated Red Blood Cells % 0.0 Platelet Count 178 Red Blood Count 4.36 L Red Cell Distribution Width 13.7 White Blood Count 9.8 # Medications Medications Current Medications Potassium Chloride/Dextrose/ Sod Cl (D5-1/2ns + KCl 20 Meq) 1,000 ml @ 100 mls/ hr Q10H IV Last administered on 11/20/16 20:23; Admin Dose 100 MLS/HR; Start at 12:00 Acetaminophen/ Hydrocodone Bitart ([place] (10/325)) 1 tab Q4H PRN PO PAIN LEVEL 1-5 Last administered on 11/21/16 08:04; Admin Dose 1 TAB; Start 11/18/16 at 07: 30 Acetaminophen/ Hydrocodone Bitart ([place] (10/325)) 2 tab Q4H PRN PO PAIN LEVEL 6-10; Start 11/18/16 at 07:30 Hydromorphone HCl (Dilaudid) 0.2 mg Q1H PRN IV BREAKTHROUGH PAIN Last administered on 11/19/16 16:46; Admin Dose 0.2 MG; Start 11/18/16 at 07:30 Zolpidem Tartrate (Ambien) 5 mg HS PRN PO INSOMNIA; Start 11/18/16 at 07:30 Ondansetron HCl (Zofran Inj) 4 mg Q6H PRN IV NAUSEA AND/OR VOMITING; Start 11/18 at 07:30 Bisacodyl (Dulcolax Supp) 10 mg DAILY PRN [place] CONSTIPATION; Start 11/18/16 at 07: 30 Docusate Sodium (Colace) 100 mg BID PO Last administered on 11/21/16 08:04; Admin Dose 100 MG; Start 11/18/16 at 09:00 Al Hydrox/Mg Hydrox/Simethicone (Mag-Al Plus) 15 ml Q6H PRN PO CONSTIPATION/ DYSPEPSIA; Start 11/18/16 at 07:30 Acetaminophen (Tylenol Tab) 650 mg Q4H PRN PO BRITT OR TEMP GREATER THAN 101.3F; Start 11/18/16 at 07:30 Cyclobenzaprine HCl (Flexeril) 10 mg TID PRN PO MUSCLE SPASMS Last administered on 11/19/16 23:21; Admin Dose 10 MG; Start 11/18/16 at 07:30 Phenol (Cepastat Lozenge) 1 lozenge PRN PRN [place] SORE THROAT Last administered on 11/20/16 09:07; Admin Dose 1 LOZENGE; Start 11/18/16 at 07:30 Diphenhydramine HCl (Benadryl) 25 mg Q6H PRN PO ITCHING; Start 11/18/16 at 07:30 Diphenhydramine HCl (Benadryl) 25 mg Q6H PRN IV ITCHING; Start 11/18/16 at 07:30 Naloxone HCl (Narcan) 0.2 mg Q2M PRN IV RR 8 BREATHS/MIN OR LESS; Start at 07:30 Clonidine (Catapres) 0.1 mg Q8H PRN PO ELEVATED BLOOD PRESSURE Last administered on 11/18/16 16:08; Admin Dose 0.1 MG; Start 11/18/16 at 13:30 Pantoprazole 40 mg 40 mg DAILY@06 PO Last administered on 11/21/16 06:40; Admin Dose 40 MG; Start 11/20/16 at 06:00 Diltiazem HCl (Cardizem-D5W 125 Mg/125 ml Drip) 125 ml @ 5 mls/hr TITRATE IV Last administered on 11/20/16 11:15; Admin Dose 5 MLS/HR; Start 11/20/16 at 13:00 Diltiazem HCl (Cardizem) 60 mg Q8 PO Last administered on 11/21/16 06:40; Admin Dose 60 MG; Start 11/20/16 at 14:00 Ankit Morales DO Nov 21, 2016 13:37
[2016-11-21] MEDS ORDERED: HYDR-906 PO ×2 (16:37→16:48)
[2016-11-21] MEDS ORDERED: DOCU-144 PO ×2 (16:38→16:49)
[2016-11-21] MEDS ORDERED: CYCL-319 PO ×2 (16:39→16:49)
[2016-11-21] MEDS ORDERED: DILT300C53 PO ×2 (16:44→16:50)
[2016-11-21] MEDS ORDERED: ACET325T45 PO (16:45)
--- NOTE | 2016-11-24 15:48 | DS ---
DATE OF ADMISSION: 11/18/2016 DATE OF DISCHARGE: 11/21/2016 ADMITTING DIAGNOSES: L5-S1 spondylolisthesis. DISCHARGE DIAGNOSES: 1. L5-S1 spondylolisthesis. 2. Atrial fibrillation. PROCEDURE: The patient taken to the operating room on 11/18/2016, underwent ALIF at L4-L5. HOSPITAL COURSE: The patient was admitted to the orthopedic pena after undergoing the above procedu re. Postoperatively, he developed atrial fibrillation, was transferred to telemetry and underwent c ardiac workup. He was placed on cardiac meds and ultimately deemed stable for discharge on 11/22/19 17 with followup arranged with the undersigned and a arborist. Dictated By: IVELISSE JAIMES/KAMRON Conf#: [id number] DID#: [id number]
== END 2016-11-21 18:40 | disposition home or self-care (01) | DRG 455 ==
LOC: REC 05:17 → MS1 13:08 → TEL 11-20 03:24
PROVIDERS: ADMIT Specialist; ATTEND Specialist
PROC: 0SG30K1 Fusion of Lumbosacral Joint with Nonautologous Tissue Substitute, Posterior Approach, Posterior Column, Open Approach (ICD-10-PCS; 2016-11-18)
PROC: 0ST40ZZ Resection of Lumbosacral Disc, Open Approach (ICD-10-PCS; 2016-11-18)
PROC: 07DS3ZZ Extraction of Vertebral Bone Marrow, Percutaneous Approach (ICD-10-PCS; 2016-11-18)
PROC: 0SG30A0 Fusion of Lumbosacral Joint with Interbody Fusion Device, Anterior Approach, Anterior Column, Open Approach (ICD-10-PCS; principal; 2016-11-18 07:00)
DX: M43.17 Spondylolisthesis, lumbosacral region (principal); I10 Essential (primary) hypertension; M48.07 Spinal stenosis, lumbosacral region; M51.17 Intervertebral disc disorders with radiculopathy, lumbosacral region; I48.0 Paroxysmal atrial fibrillation; I51.7 Cardiomegaly; I77.810 Thoracic aortic ectasia
CPT/HCPCS: 72020; 72110; 74000; 80048; 83735; 84439; 84443; 84484; 85025; 85610; 85730; 86850; 86900; 86901; 86920; 86999; 87086; 93005; 93306; 97116; 97161; 97530; C1713; C9113; J0330; J0690; J1100; J1170; J1644; J1885; J2250; J2405; J3010; J3475; J3480; V2790